=== PATIENT | female | born 1940 | race Caucasian/White ===

== ENCOUNTER 2016-11-10 15:08 | Inpatient (IN) ==
[~2016-11-10 15:08] MED LIST: ACETAMINOPHEN 325 MG TABLET PO PRN; DOCUSATE SODIUM 100 MG CAPSULE PO PRN; MAGNESIUM SULF RIDER 2 GM in PREMIX 1 EACH IV PRN; MAGNESIUM SULF RIDER 4 GM in PREMIX 1 EACH IV PRN; ONDANSETRON 4 MG/2 ML VIAL IV PRN; ZALEPLON 5 MG CAPSULE PO PRN
[2016-11-10] MEDS: DILTIAZEM INJ 100 MG in SODIUM CHLORIDE 0.9% 100 ML IV SCH (16:08)
--- NOTE | 2016-11-10 16:35 | XRay Report ---
XR chest 2V Indication: New onset atrial fibrillation Comparison: Chest x-ray dated May 24, 2010 Technique: Frontal and lateral views of the chest. Findings: The cardiomediastinal silhouette is stable in configuration. Chronic/granulomatous change without focal consolidation, pleural effusion, or pneumothorax. Visualized osseous and surrounding soft tissue structures appear grossly unchanged. IMPRESSION: Stable chest x-ray without acute cardiopulmonary process demonstrated. PROCEDURE INTERPRETED AT [facility] DEPARTMENT OF RADIOLOGY Final Report Signed by: Dr Mihai Sylvester
[2016-11-10 16:43] LABS: Basophils # 0.1 10*3/uL (0.0-0.2); Basophils % 0.6 % (0.0-0.8); Eosinophils # 0.3 10*3/uL (0.0-0.87); Eosinophils % 3.4 % (0.00-10.9); Hematocrit 35.4 VOL% (35.7-47.0); Hemoglobin 12.5 GM/DL (12.0-16.0); Immature Granulocytes % 0.2 %; Immature Granulocytes Absolute 0.02 #; Lymphocytes # 3.4 10*3/uL (1.4-4.0); Lymphocytes % 34.8 % (21.3-54.2); Mean Corpuscular HGB Conc 35.3 GM/DL (32-36); Mean Corpuscular Hemoglobin 31 PG (27-34); Mean Corpuscular Volume 86.8 FL (87-102); Mean Platelet Volume 11.6 FL (9.6-12.0); Monocytes # 0.8 10*3/uL (0.11-0.8); Monocytes % 8.4 % (1.7-12.7); Neutrophils # 5.1 10*3/uL (1.4-7.4); Neutrophils % 52.6 % (38.7-73.9); Platelet Count 282 T/CUMM (130-400); Red Blood Count 4.08 MC/CUMM (3.8-5.5); Red Cell Distribution Width 13.9 % (9.3-17.3); White Blood Count 9.8 T/CUMM (4-12)
[2016-11-10 17:12] LABS: Calcium 9.7 MG/DL (8.5-10.1); Magnesium 1.9 MG/DL (1.8-2.4); Osmolality,Calculated 281.7 MOS/KG (273-304); Potassium 4.4 MMOL/L (3.5-5.1); Risk Ratio 3.29; Thyroid Stimulating Hormone 0.006 uIU/ml (0.358-3.74); VLDL CHOLESTEROL 22.8 MG/DL
[2016-11-10] MEDS: ENOXAPARIN 60 MG/0.6 ML SYRINGE SUBCUT SCH (17:55)
[2016-11-10] MEDS: ATORVASTATIN 40 MG TABLET PO SCH (20:40)
[2016-11-10] MEDS: LATANOPROST 0.005% OPH SOLN 2.5 ML BOTTLE BOTH EYES SCH (20:40)
[2016-11-11] MEDS: DILTIAZEM INJ 100 MG in SODIUM CHLORIDE 0.9% 100 ML IV SCH ×2 (05:12→22:13)
[2016-11-11] MEDS: ENOXAPARIN 60 MG/0.6 ML SYRINGE SUBCUT SCH ×2 (05:17→17:54)
[2016-11-11 06:09] LABS: Basophils % 0.6 % (0.0-0.8); Eosinophils # 0.3 10*3/uL (0.0-0.87); Eosinophils % 4.5 % (0.00-10.9); Hematocrit 35.2 VOL% (35.7-47.0); Hemoglobin 12.1 GM/DL (12.0-16.0); Immature Granulocytes % 0.3 %; Immature Granulocytes Absolute 0.02 #; Lymphocytes # 2.7 10*3/uL (1.4-4.0); Lymphocytes % 40.8 % (21.3-54.2); Mean Corpuscular HGB Conc 34.4 GM/DL (32-36); Mean Corpuscular Hemoglobin 30 PG (27-34); Mean Corpuscular Volume 85.9 FL (87-102); Mean Platelet Volume 11.6 FL (9.6-12.0); Monocytes # 0.5 10*3/uL (0.11-0.8); Neutrophils # 3.1 10*3/uL (1.4-7.4); Neutrophils % 45.8 % (38.7-73.9); Platelet Count 247 T/CUMM (130-400); Red Cell Distribution Width 13.8 % (9.3-17.3); White Blood Count 6.7 T/CUMM (4-12)
[2016-11-11 06:44] LABS: Calcium 9.4 MG/DL (8.5-10.1); Osmolality,Calculated 285.1 MOS/KG (273-304); Potassium 3.5 MMOL/L (3.5-5.1)
--- NOTE | 2016-11-11 07:28 | Order Completion Report ---
See report scanned to EMR
[2016-11-11] MEDS: ASPIRIN EC 81 MG TABLET PO SCH (08:42)
[2016-11-11] MEDS: DILTIAZEM CD 240 MG CAPSULE PO SCH (08:42)
[2016-11-11] MEDS: VITAMIN E 400 UNIT CAPSULE PO SCH (08:42)
[2016-11-11] MEDS: METOPROLOL SUCCINATE XL 100 MG TABLET PO SCH (08:42)
[2016-11-11] MEDS: PANTOPRAZOLE 40 MG TABLET PO SCH (08:42)
[2016-11-11] MEDS: CHOLECALCIFEROL 1,000 UNIT TABLET PO SCH (08:42)
[2016-11-11] MEDS: ZINC GLUCONATE 50 MG TABLET PO SCH (08:42)
[2016-11-11] MEDS: LATANOPROST 0.005% OPH SOLN 2.5 ML BOTTLE BOTH EYES SCH ×2 (14:00→21:20)
--- NOTE | 2016-11-11 17:04 | Order Completion Report ---
See report scanned to EMR
--- NOTE | 2016-11-11 19:25 | Cardiology Progress Note ---
Eduardo Delacruz Lesley, JUSTYN, am scribing for, and in the presence of, Abimael Guillen MD 19:25. Assessment and Plan - Time spent with patient Time spent with patient: Greater than 30 minutes (Record review, assessment, documentation) (1) Atrial fibrillation Status: Acute Assessment and plan: SEE PLAN LISTED BELOW Current Visit: Yes (2) Dyslipidemia Status: Chronic Assessment and plan: SEE PLAN LISTED BELOW Current Visit: Yes (3) Hypertension Status: Chronic Assessment and plan: SEE PLAN LISTED BELOW Current Visit: Yes (4) Anticoagulation adequate Status: Acute Assessment and plan: SEE PLAN LISTED BELOW Current Visit: Yes Cardiology - PN: Subj Interval history: CONSERVATION TECHNICIAN: Dr. Mast PCP: Dr. Encarnacion SUMMARY: Ms. Rios is a 76-year-old WF, who is a direct admit from [facility] by Dr. Mast to be evaluated and treated for atrial fibrillation with RVR. Upon admission her heart rate was found to be in the 130s, EKG revealed atrial fibrillation. The patient was seen by Dr. Simpson in the past, and placed on Cardizem CD 240 mg daily and metoprolol succinate 100 mg daily. She has been on these medications for some time, and denies any history of atrial fibrillation. The patient was started on therapeutic Lovenox dosing as well as a diltiazem infusion for rate control. She is high risk for stroke as her chads vasc score exceeds 2. Past medical history includes hypertension and dyslipidemia. Past surgical history includes hysterectomy, TMJ surgery, hemorrhoidectomy. Patient has a family history of CAD, her mother with an OH at the age of 85, she has 1 brother that had several MIs, and his son is an OH. She denies a history of smoking, alcohol use, illicit drug use, and describes her caffeine intake is light. The patient states she has experience general malaise for approximately 2 months. She describes "weak spells" that she has had for 2-3 weeks. She states that during the spells she becomes dizzy, diaphoretic, and does experience heart palpitations. She denies shortness of breath, chest pain or discomfort, lower extremity edema, cough, orthopnea, or PND. Today she is ambulating on telemetry floor. She is on a Cardizem infusion at 20 mg an hour, with a heart rate in the 60-70 range. Her blood pressure has remained stable. Labs reviewed and are unremarkable. TSH is low, I will add free T4 at this level. Echocardiogram is pending. IMPRESSION AND PLAN: PRE-SYNCOPAL EPISODES -on telemetry, she had persistent atrial fibrillation, with occasional bradycardia events, on Cardizem drip. We discussed risks and benefits of management options. She had quite severe symptoms from the arrhythmia. We will proceed with a ANDREW guided cardioversion in a.m. Keep n.p.o. after midnight. venox, Cardizem infusion, persistent despite high dose AV caroline blockade daily. DYSLIPIDEMIA - well controlled, continue Lipitor. HYPERTENSION - controlled, will continue to monitor and adjust meds accordingly. ANTICOAGULANT - continue Lovenox, will transition to oral anticoagulant due to stroke risk, Chads Vasc score 3. Exam (Progress Note) - Constitutional Vitals: Period Temp Pulse Resp BP Sys/Traore Pulse Ox Last 24 Hr 97.1 F-98.5 F 68-139 16-20 111-131/56-77 95-99 Exam: General: Appears well with no apparent distress. Pleasant and cooperative. Appears comfortable. HEENT: PERRL, normocephalic, atraumatic. Mucous membranes moist. No jaundice noted. Conjunctiva moist and clear, sclerae anicteric. Neck: No JVD, no thyromegaly or lymphadenopathy noted. No carotid bruit appreciated. Cardiac: Irregularly irregular rate and rhythm. No murmur rub or gallop. PMI is nondisplaced. Lungs: Clear to auscultation without accessory muscle use to assist the respiratory pattern. No oxygen in use. Abdomen: Soft, bowel sounds normoactive. Nontender and nondistended. No abdominal bruit or thrill noted. No masses noted. Musculoskeletal: No fluid collection. Full range of motion is noted. Extremities: No clubbing, cyanosis noted. No edema noted. Upper extremity pulses 2+. Lower extremity pulses 2+. Capillary refill less than 3 seconds. Skin: Warm and dry. No unusual lesions or rashes. No skin breakdown appreciated. Neuro: Awake, alert and oriented 3. Moves all extremities well without hemiparesis or paralysis. No essential tremor is appreciated. Result/EKG - Labs CBC & BMP: 11/11/16 05:19 11/11/16 05:19 Lab Results: I have reviewed the past 24 hour labs Labs: Laboratory Results - last 24 hr 11/10/16 11/10/16 11/11/16 16:10 16:10 05:19 WBC 9.8 6.7 D RBC 4.08 4.10 Hgb 12.5 12.1 Hct 35.4 L 35.2 L MCV 86.8 L 85.9 L MCH 31 30 MCHC 35.3 34.4 RDW 13.9 13.8 Plt Count 282 247 MPV 11.6 11.6 Neut % (Auto) 52.6 45.8 Lymph % (Auto) 34.8 40.8 [place] % (Auto) 8.4 8.0 Eos % (Auto) 3.4 4.5 Baso % (Auto) 0.6 0.6 Neut # (Auto) 5.1 3.1 Lymph # (Auto) 3.4 2.7 [place] # (Auto) 0.8 0.5 Eos # (Auto) 0.3 0.3 Baso # (Auto) 0.1 0.0 Immature Gran % 0.2 0.3 Nucleated RBC % 0.0 0.0 Immature Gran # 0.02 0.02 Nucleated RBCs # 0.00 0.00 Immature Plt Fraction 0.0 0.0 Sodium 138 Potassium 4.4 Chloride 102 Carbon Dioxide 28 Anion Gap 12.4 BUN 32 H Creatinine 1.00 GFR Calculation 54 BUN/Creatinine Ratio 32.00 H Glucose 99 Calculated Osmolality 281.7 Calcium 9.7 Magnesium 1.9 Triglycerides 114 Cholesterol 138 LDL Cholesterol 79.0 VLDL Cholesterol 22.8 HDL Cholesterol 42 Heart Disease Risk Ratio 3.29 TSH 3rd Generation 0.006 L 11/11/16 05:19 WBC RBC Hgb Hct MCV MCH MCHC RDW Plt Count MPV Neut % (Auto) Lymph % (Auto) [place] % (Auto) Eos % (Auto) Baso % (Auto) Neut # (Auto) Lymph # (Auto) [place] # (Auto) Eos # (Auto) Baso # (Auto) Immature Gran % Nucleated RBC % Immature Gran # Nucleated RBCs # Immature Plt Fraction Sodium 142 Potassium 3.5 Chloride 104 Carbon Dioxide 31 Anion Gap 10.5 BUN 22 H D Creatinine 0.80 GFR Calculation 70 BUN/Creatinine Ratio 27.00 H Glucose 91 Calculated Osmolality 285.1 Calcium 9.4 Magnesium 2.0 Triglycerides Cholesterol LDL Cholesterol VLDL Cholesterol HDL Cholesterol Heart Disease Risk Ratio TSH 3rd Generation - Diagnostic Findings Procedure: Chest x-ray: report reviewed by me - EKG EKG shows: atrial fibrillation Quality Measures - VTE Contraindication to Pharmacological VTE Prophylaxis: Already on Theraputic Agent , No Prophylaxis Needed Wilmer Delacruz Attila, MD, personally performed the services described in this documentation, ascribed by Sandra Clark NP in my presence, and it is both accurate and complete .
--- NOTE | 2016-11-11 20:10 | Order Completion Report ---
See report scanned to EMR
[2016-11-11] MEDS: ATORVASTATIN 40 MG TABLET PO SCH (21:20)
[2016-11-12 03:13] LABS: Apearance,Urine CLEAR (Clear); Bilirubin,Urine Negative (Negative); Blood, Urine Negative (Negative); Glucose,Urine (UA) Negative (Negative); Ketones,Urine Negative (Negative); Nitrite,Urine Negative (Negative); Protein,Urine Negative; RBC,Urine <1 /HPF (0-4); Urine Color Straw (Yellow); Urine Specific Gravity 1.004 (1.001-1.035); Urine Urobilinogen < 2.0 EU/DL (0.2-1.0); WBC,Urine <1 /HPF (0-6)
[2016-11-12 04:23] LABS: Basophils % 0.5 % (0.0-0.8); Eosinophils # 0.3 10*3/uL (0.0-0.87); Eosinophils % 3.9 % (0.00-10.9); Hemoglobin 12.3 GM/DL (12.0-16.0); Immature Granulocytes % 0.3 %; Immature Granulocytes Absolute 0.02 #; Lymphocytes # 3.1 10*3/uL (1.4-4.0); Lymphocytes % 40.2 % (21.3-54.2); Mean Corpuscular HGB Conc 34.2 GM/DL (32-36); Mean Corpuscular Hemoglobin 30 PG (27-34); Mean Corpuscular Volume 86.5 FL (87-102); Mean Platelet Volume 11.6 FL (9.6-12.0); Monocytes # 0.8 10*3/uL (0.11-0.8); Monocytes % 10.1 % (1.7-12.7); Neutrophils # 3.5 10*3/uL (1.4-7.4); Platelet Count 233 T/CUMM (130-400); Red Blood Count 4.16 MC/CUMM (3.8-5.5); Red Cell Distribution Width 13.7 % (9.3-17.3); White Blood Count 7.7 T/CUMM (4-12)
[2016-11-12 04:26] LABS: INR 1.1; PT Patient Result 11.5 SECS
[2016-11-12] MEDS: ENOXAPARIN 60 MG/0.6 ML SYRINGE SUBCUT SCH (04:30)
[2016-11-12 04:50] LABS: Calcium 9.2 MG/DL (8.5-10.1); Magnesium 1.9 MG/DL (1.8-2.4); Osmolality,Calculated 288.8 MOS/KG (273-304); Potassium 4.1 MMOL/L (3.5-5.1)
--- NOTE | 2016-11-12 08:02 | Order Completion Report ---
See report scanned to EMR
[2016-11-12] MEDS ORDERED: PROPOFOL 200 MG/20 ML VIAL IV ONE (09:14)
--- NOTE | 2016-11-12 09:29 | History and Physical Update ---
Sedation H&P Update - History and Physical H&P was reviewed, the patient examined and there: are no changes in the patients condition since last H&P was completed. - Dictation Physical: refer to H&P completed by admitting physician - Physical Exam Mental Status: alert and oriented Heart: other (irregular, tachy) Lung: clear to auscultation Abdomen: within normal limits Vitals: within normal limits - Sedation Plan for Sedation: MAC (by the anesthesia team) Patient Consent: Procedure disscussed with patient and patinet has consented., Risks and benefits were discussed with patient,including infection,, bleeding, injury to surrounding structures, seizure, temporary nerve, Patient understands and accepts potential risks/benefits and agrees to ASA Class: III Airway Assessment: Class II: Soft palate, uvula, fauces visible
--- NOTE | 2016-11-12 09:53 | Event Note ---
PROCEDURAL SUMMARY ANDREW guided cardioversion. Successful procedure, no complications. Timeout was performed before the procedure. Sedation was provided by the anesthesia team. A ANDREW was performed to rule out intracardiac thrombi. See report separately. Briefly, no intracardiac thrombi were found. Synchronized DC cardioversion was performed with a 200 J biphasic shock. Sinus rhythm, with frequent PACs resumed. The patient woke up uneventfully from sedation. There were no complications. Plan: -d/c cardizem drip -continue metoprolol -resume diet
[2016-11-12] MEDS ORDERED: APIXABAN 5 MG TABLET PO SCH (10:00)
[2016-11-12] MEDS ORDERED: FLECAINIDE 50 MG TABLET PO SCH (10:00)
[2016-11-12 10:16] LABS: Albumin 3.3 G/DL (3.4-5.0); Bilirubin,Direct 0.21 MG/DL (0.0-0.20); Bilirubin,Indirect 0.6 MG/DL (0.0-1.0); Bilirubin,Total 0.8 MG/DL (0.2-1.0)
--- NOTE | 2016-11-12 10:17 | Order Completion Report ---
See report scanned to EMR
--- NOTE | 2016-11-12 10:20 | Cardiology Progress Note ---
Assessment and Plan (1) Atrial fibrillation Status: Acute Assessment and plan: 76-year-old female, followed by Dr. Cooper. Admitted for symptomatic atrial fibrillation/RVR, presyncope. Was diagnosed with hyperthyroidism. -Increase metoprolol to 100 mg twice daily, DC Cardizem. Start flecainide 50 mg twice daily -Check free T3, thyroid ultrasound. Based on the findings, she will likely be a candidate for methimazole treatment due to symptomatic hypothyroidism, and will need endocrine follow-up -Check LFTs -DYSLIPIDEMIA - well controlled, continue Lipitor. -HYPERTENSION - controlled, will continue to monitor and adjust meds accordingly. -ANTICOAGULANT -stop Lovenox, start Eliquis 5 mg twice daily. -If remains stable and no high risk findings on thyroid workup, may be able to go home later today. Will need follow-up with Dr. Mast in 2 weeks, with EKG and BMP/magnesium check. She will also need endocrine follow-up. I suggest an event recorder, as she had recurrent presyncope, but so far, no evidence of prominent tachycardia or bradycardia arrhythmia Current Visit: Yes (2) Dyslipidemia Status: Chronic Assessment and plan: SEE PLAN LISTED BELOW Current Visit: Yes (3) Hypertension Status: Chronic Assessment and plan: SEE PLAN LISTED BELOW Current Visit: Yes (4) Anticoagulation adequate Status: Acute Assessment and plan: SEE PLAN LISTED BELOW Current Visit: Yes Cardiology - PN: Subj Interval history: Uneventful ANDREW cardioversion, she is now back into sinus rhythm, with frequent PACs. No chest pain shortness of breath. Exam (Progress Note) - Constitutional Vitals: Period Temp Pulse Resp BP Sys/Traore Pulse Ox Last 24 Hr 96.9 F-98.6 F 51-116 16-18 101-132/55-70 94-98 General appearance: normal weight, no acute distress - Head Head exam: Present: normal inspection - Eye Eye exam: Absent: periorbital swelling, laceration to eyelids Pupils: Absent: dilated - ENT ENT exam: Present: normal external ear exam - Neck Neck exam: Present: normal inspection - Respiratory Respiratory exam: Present: clear to auscultation bilaterally. Absent: chest wall tenderness - Cardiovascular Cardiovascular exam: Present: irregular rhythm. Absent: JVD, systolic murmur - GI/Abdominal GI/Abdominal exam: Present: normal bowel sounds. Absent: distended - Extremities Exam Extremities exam: Present: normal inspection, normal capillary refill. Absent: edema - Back Exam Back exam: Present: normal inspection - Neurological Exam Neurological exam: Present: alert, oriented X3 - Psychiatric Psychiatric exam: Present: normal affect, normal mood - Skin Skin exam: Present: normal color, warm. Absent: cyanosis Result/EKG - Labs CBC & BMP: 11/12/16 03:31 11/12/16 03:31 Lab Results: I have reviewed the past 24 hour labs Labs: Laboratory Results - last 24 hr 11/11/16 11/12/16 11/12/16 05:19 02:58 03:31 WBC 7.7 RBC 4.16 Hgb 12.3 Hct 36.0 MCV 86.5 L MCH 30 MCHC 34.2 RDW 13.7 Plt Count 233 MPV 11.6 Neut % (Auto) 45.0 Lymph % (Auto) 40.2 [place] % (Auto) 10.1 Eos % (Auto) 3.9 Baso % (Auto) 0.5 Neut # (Auto) 3.5 Lymph # (Auto) 3.1 [place] # (Auto) 0.8 Eos # (Auto) 0.3 Baso # (Auto) 0.0 Immature Gran % 0.3 Nucleated RBC % 0.0 Immature Gran # 0.02 Nucleated RBCs # 0.00 Immature Plt Fraction 0.0 INR PT Patient/Control Mix Sodium Potassium Chloride Carbon Dioxide Anion Gap BUN Creatinine GFR Calculation BUN/Creatinine Ratio Glucose Calculated Osmolality Calcium Magnesium Free T4 2.25 H Urine Color Straw Urine Appearance Clear Urine pH 7.0 Ur Specific [place] 1.004 Urine Protein Negative Urine Glucose (UA) Negative Urine Ketones Negative Urine Blood Negative Urine Nitrate Negative Urine Bilirubin Negative Urine Urobilinogen < 2.0 H Urine Leukocytes Negative Urine RBC <1 Urine WBC <1 Ur Culture Indicated? Not indicated 11/12/16 11/12/16 03:31 03:31 WBC RBC Hgb Hct MCV MCH MCHC RDW Plt Count MPV Neut % (Auto) Lymph % (Auto) [place] % (Auto) Eos % (Auto) Baso % (Auto) Neut # (Auto) Lymph # (Auto) [place] # (Auto) Eos # (Auto) Baso # (Auto) Immature Gran % Nucleated RBC % Immature Gran # Nucleated RBCs # Immature Plt Fraction INR 1.1 PT Patient/Control Mix 11.5 Sodium 144 Potassium 4.1 Chloride 107 Carbon Dioxide 30 Anion Gap 11.1 BUN 21 H Creatinine 0.80 GFR Calculation 70 BUN/Creatinine Ratio 26.00 H Glucose 93 Calculated Osmolality 288.8 Calcium 9.2 Magnesium 1.9 Free T4 Urine Color Urine Appearance Urine pH Ur Specific [place] Urine Protein Urine Glucose (UA) Urine Ketones Urine Blood Urine Nitrate Urine Bilirubin Urine Urobilinogen Urine Leukocytes Urine RBC Urine WBC Ur Culture Indicated? - EKG EKG results: interpreted by me Quality Measures - VTE Contraindication to Pharmacological VTE Prophylaxis: Already on Theraputic Agent , No Prophylaxis Needed
[2016-11-12] MEDS: CHOLECALCIFEROL 1,000 UNIT TABLET PO SCH (11:59)
[2016-11-12] MEDS: PANTOPRAZOLE 40 MG TABLET PO SCH (12:00)
[2016-11-12] MEDS: ASPIRIN EC 81 MG TABLET PO SCH (12:00)
[2016-11-12] MEDS: ZINC GLUCONATE 50 MG TABLET PO SCH (12:00)
[2016-11-12] MEDS ORDERED: METOPROLOL SUCCINATE XL 100 MG TABLET PO SCH (12:00)
[2016-11-12] MEDS: METOPROLOL SUCCINATE XL 100 MG TABLET PO SCH (12:01)
[2016-11-12] MEDS: DILTIAZEM CD 240 MG CAPSULE PO SCH (12:04)
[2016-11-12] MEDS: VITAMIN E 400 UNIT CAPSULE PO SCH (12:05)
--- NOTE | 2016-11-12 16:39 | Order Completion Report ---
See report scanned to EMR
[2016-11-12 16:41] VITALS: BP 131/62
--- NOTE | 2016-11-12 17:16 | Discharge Summary ---
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 Mast PCP: Dr. Encarnacion SUMMARY: Ms. Rios is a 76-year-old WF, who is a direct admit from [facility] by Dr. Mast to be evaluated and treated for atrial fibrillation with RVR, presyncope. Upon admission her heart rate was found to be in the 130s, EKG revealed atrial fibrillation. The patient was seen by Dr. Simpson in the past, and placed on Cardizem CD 240 mg daily and metoprolol succinate 100 mg daily. She has been on these medications for some time, and denies any history of atrial fibrillation. The patient was started on therapeutic Lovenox dosing as well as a diltiazem infusion for rate control. She is high risk for stroke as her chads vasc score exceeds 2. She has been diagnosed with hyperthyroidism. She underwent ANDREW and Cardioversion on 11/12/16 and was restored to sinus rhythm with frequent PACs. Her metoprolol was increased to 100mg BID and Cardizem discontinued. She was also started on Flecainide 50mg po BID. Thyroid ultrasound was obtained and revealed 0.9 cm left thyroid lobe nodule. We will start her on Methimazole 5mg po daily. She and her family have the name of an roller machine operator in [place] that she wishes to follow up with. Since the patient is being discharged after 6PM, we will have the equal opportunity assistant call her in the morning with follow up appointments for endocrinology, Dr. Mast, and Dr. Encarnacion. She has remained stable and is eligible for discharge. She will need to follow up with Dr. Mast in 2 weeks with EKG and BMP w/ Mg. She will also need to follow up with her PCP Dr. Encarnacion in 1-2 weeks with repeat LFTs and will need follow up with endocrinology. She will need an event recorder at discharge, as she had recurrent presyncope, but so far, no evidence of prominent tachycardia or bradycardia arrhythmia. Nursing staff will call in Methimazole 5mg po daily #30, 1 refill to patient's pharmacy of choice. - Time spent with patient Time with patient DS: Greater than 30 minutes Diagnosis - Discharge Diagnosis (1) Atrial fibrillation Status: Resolved (2) Dyslipidemia Status: Chronic (3) Hypertension Status: Chronic (4) Anticoagulation adequate Status: Acute Specialty Discharge - Follow Up or Referrals Follow up with: Saadia Mast DO [Physician] - 2 Weeks (With BMP w/ Mg. ) Crystal Encarnacion MD [Primary Care Provider] - 2 Weeks (Follow up in 2-3 weeks with LFTs. ) - Speciality Discharge Instructions Endocrinology Instructions: Please schedule patient an appointment with endocrinology upon discharge. Discharge Plan - Discharge Data Disposition: Disch To Home/Self Care Condition at Discharge: Stable Discharge Diet: heart healthy Activity: resume usual activities as tolerated Hygiene: no restrictions Weight Bearing at Discharge: full weight bearing Contact your physician if you experience:: fever over 101, Difficulty voiding, Nausea/Vomiting, Shortness of breath, pain uncontrolled by pain medications - Discharge Medications New Flecainide [Tambocor] 50 mg PO BID #60 tablet methIMAzole [Methimazole] 5 mg PO DAILY #30 tablet Apixaban [Eliquis] 5 mg PO BID #60 tablet Metoprolol Succinate Xl [Toprol Xl] 100 mg PO BID #60 tablet Continue Latanoprost [Latanoprost 0.005 % Oph Soln] 1 drop BOTH EYES BEDTIME Vitamin E 400 unit PO DAILY Cholecalciferol (Vitamin D3) [Vitamin D3] 1,000 unit PO DAILY Atorvastatin Calcium 40 mg PO DAILY Aspirin [Ecotrin] 81 mg PO DAILY Zinc 50 mg PO DAILY Indapamide 2.5 mg PO DAILY Discontinued Benazepril [Lotensin] 10 mg PO DAILY dilTIAZem HCl [Diltiazem ER (24 hr)] 120 mg PO DAILY Metoprolol Succinate 100 mg PO DAILY No Action Potassium Chloride 10 meq PO DAILY - Follow Up or Referral Follow Up: Crystal Encarnacion MD [Primary Care Provider] - 2 Weeks (Follow up in 2-3 weeks with LFTs. ) Saadia Mast DO [Physician] - 2 Weeks (With BMP w/ Mg. ) - Forms/Instructions Additional Discharge Instructions: Nursing staff please call in Methimazole 5mg po daily #30, 1 refill to patient's pharmacy of choice. Exam - Constitutional Vitals: Period Temp Pulse Resp BP Sys/Traore Pulse Ox Last 24 Hr 96.0 F-98.2 F 55-116 16-18 101-132/59-70 94-99 Exam: General appearance: normal weight, no acute distress - Head Head exam: Present: normal inspection - Eye Eye exam: Absent: periorbital swelling, laceration to eyelids Pupils: Absent: dilated - ENT ENT exam: Present: normal external ear exam - Neck Neck exam: Present: normal inspection - Respiratory Respiratory exam: Present: clear to auscultation bilaterally. Absent: chest wall tenderness - Cardiovascular Cardiovascular exam: Present: irregular rhythm. Absent: JVD, systolic murmur - GI/Abdominal GI/Abdominal exam: Present: normal bowel sounds. Absent: distended - Extremities Exam Extremities exam: Present: normal inspection, normal capillary refill. Absent: edema - Back Exam Back exam: Present: normal inspection - Neurological Exam Neurological exam: Present: alert, oriented X3 - Psychiatric Psychiatric exam: Present: normal affect, normal mood - Skin Skin exam: Present: normal color, warm. Absent: cyanosis Discharge Results Procedures and tests throughout hospitalization: Pending Orders 11/12/16 03:28 Free T3 (Triiodothyronine), S Routine 11/12/16 08:18 CL heart Routine 11/12/16 09:43 US thyroid Routine Labs on day of discharge: Labs from last 24 hours 11/12/16 11/12/16 11/12/16 03:31 03:31 03:31 WBC 7.7 RBC 4.16 Hgb 12.3 Hct 36.0 MCV 86.5 L MCH 30 MCHC 34.2 RDW 13.7 Plt Count 233 MPV 11.6 Neut % (Auto) 45.0 Lymph % (Auto) 40.2 [place] % (Auto) 10.1 Eos % (Auto) 3.9 Baso % (Auto) 0.5 Neut # (Auto) 3.5 Lymph # (Auto) 3.1 [place] # (Auto) 0.8 Eos # (Auto) 0.3 Baso # (Auto) 0.0 Immature Gran % 0.3 Nucleated RBC % 0.0 Immature Gran # 0.02 Nucleated RBCs # 0.00 Immature Plt Fraction 0.0 INR 1.1 PT Patient/Control Mix 11.5 Sodium 144 Potassium 4.1 Chloride 107 Carbon Dioxide 30 Anion Gap 11.1 BUN 21 H Creatinine 0.80 GFR Calculation 70 BUN/Creatinine Ratio 26.00 H Glucose 93 Calculated Osmolality 288.8 Calcium 9.2 Magnesium 1.9 Total Bilirubin Direct Bilirubin Indirect Bilirubin AST ALT Alkaline Phosphatase Total Protein Albumin Urine Color Urine Appearance Urine pH Ur Specific Trail Urine Protein Urine Glucose (UA) Urine Ketones Urine Blood Urine Nitrate Urine Bilirubin Urine Urobilinogen Urine Leukocytes Urine RBC Urine WBC Ur Culture Indicated? 11/12/16 11/12/16 03:28 02:58 WBC RBC Hgb Hct MCV MCH MCHC RDW Plt Count MPV Neut % (Auto) Lymph % (Auto) [place] % (Auto) Eos % (Auto) Baso % (Auto) Neut # (Auto) Lymph # (Auto) [place] # (Auto) Eos # (Auto) Baso # (Auto) Immature Gran % Nucleated RBC % Immature Gran # Nucleated RBCs # Immature Plt Fraction INR PT Patient/Control Mix Sodium Potassium Chloride Carbon Dioxide Anion Gap BUN Creatinine GFR Calculation BUN/Creatinine Ratio Glucose Calculated Osmolality Calcium Magnesium Total Bilirubin 0.80 Direct Bilirubin 0.210 H Indirect Bilirubin 0.6 AST 19 ALT 21 Alkaline Phosphatase 111 Total Protein 6.0 L Albumin 3.3 L Urine Color Straw Urine Appearance Clear Urine pH 7.[address] 1.004 Urine Protein Negative Urine Glucose (UA) Negative Urine Ketones Negative Urine Blood Negative Urine Nitrate Negative Urine Bilirubin Negative Urine Urobilinogen < 2.0 H Urine Leukocytes Negative Urine RBC <1 Urine WBC <1 Ur Culture Indicated? Not indicated DS: Provider Date of admission: 11/11/16 08:51 Primary care physician: Crystal Encarnacion MD Attending physician on admission: Saadia Mast DO Discharging clinician: KASHIF Conteh Expected date of discharge: 11/12/16
[2016-11-12] MEDS ORDERED: HYDROCORTISONE 1% CREAM 28 GM TUBE TOP PRN (17:46)
--- NOTE | 2016-11-12 17:53 | Ultrasound Report ---
Thyroid ultrasound November 12, 2016 at 11:00 AM Indication: Hyperthyroidism Comparison: No relevant comparisons Technique: Carmona scale sonogram of the thyroid gland was performed in routine fashion utilizing color Doppler with image capture. Findings: The isthmus measures 0.2 cm in anterior to posterior dimension. Right thyroid lobe measures 4.4 x 2.1 x 0.9 cm and the left lobe measures 4.5 x 1.4 x 1.7 cm. 1.9 x 0.8 x 1.1 cm solid nodule within the mid to inferior left thyroid lobe. Remainder of the echotexture is homogeneous. Impression: 1. 0.9 cm left thyroid lobe nodule. If clinically concerned for autonomous nodule, thyroid uptake scan could be performed. PROCEDURE INTERPRETED AT [facility] DEPARTMENT OF RADIOLOGY Final Report Signed by: Mirian Carmona MD
== END 2016-11-12 19:25 | disposition home or self-care (01) | DRG 310 ==
LOC: N.TELEN 15:08 → EDSTATUS 11-11 15:25 → N.CARD 11-11 15:27
PROVIDERS: ADMIT Internal Medicine Cardiovascular Disease; ATTEND Internal Medicine Cardiovascular Disease

== ENCOUNTER 2016-11-25 05:57 | Observation (INO) ==
[2016-11-25] MEDS ORDERED: ceFAZolin 1,000 MG VIAL IRRIG ONE (08:00)
[2016-11-25] MEDS ORDERED: ceFAZolin 1,000 MG VIAL ONE (08:23)
[2016-11-25] MEDS ORDERED: fentaNYL 100 MCG/2 ML VIAL ONE (08:23)
[2016-11-25] MEDS ORDERED: HEPARIN/NACL 0.9% 2 UNITS/ML 500 ML IV ONE (08:24)
[2016-11-25] MEDS ORDERED: MIDAZOLAM 2 MG/2 ML VIAL ONE (08:24)
[2016-11-25] MEDS ORDERED: LIDOCAINE 1% 20 ML VIAL ONE (08:24)
[2016-11-25 09:01] LABS: Magnesium 1.9 MG/DL (1.8-2.4); Osmolality,Calculated 277.8 MOS/KG (273-304); Potassium 3.6 MMOL/L (3.5-5.1)
[2016-11-25] MEDS ORDERED: TISSUE ADHESIVE 1 EACH APPLICATOR TOP ONE (09:07)
[2016-11-25] MEDS ORDERED: oxyCODONE/ACETAMINOPHEN 5-325 MG TABLET PO PRN (09:28)
[2016-11-25 09:41] LABS: Basophils # 0.1 10*3/uL (0.0-0.2); Basophils % 0.6 % (0.0-0.8); Eosinophils # 0.3 10*3/uL (0.0-0.87); Eosinophils % 3.8 % (0.00-10.9); Hematocrit 40.3 VOL% (35.7-47.0); Immature Granulocytes % 0.4 %; Immature Granulocytes Absolute 0.03 #; Lymphocytes # 2.3 10*3/uL (1.4-4.0); Mean Corpuscular HGB Conc 34.7 GM/DL (32-36); Mean Corpuscular Hemoglobin 30 PG (27-34); Mean Corpuscular Volume 87.2 FL (87-102); Mean Platelet Volume 11.7 FL (9.6-12.0); Monocytes # 0.6 10*3/uL (0.11-0.8); Monocytes % 7.6 % (1.7-12.7); Neutrophils # 4.7 10*3/uL (1.4-7.4); Neutrophils % 58.6 % (38.7-73.9); Platelet Count 243 T/CUMM (130-400); Red Blood Count 4.62 MC/CUMM (3.8-5.5); Red Cell Distribution Width 14.1 % (9.3-17.3); White Blood Count 7.9 T/CUMM (4-12)
[2016-11-25] MEDS ORDERED: POTASSIUM CHLORIDE 10 MEQ TABLET PO SCH (09:45)
[2016-11-25 10:22] LABS: INR 1.1; PT Patient Result 11.2 SECS
[2016-11-25] MEDS: CHOLECALCIFEROL 1,000 UNIT TABLET PO SCH (16:21)
[2016-11-25] MEDS: VITAMIN E 400 UNIT CAPSULE PO SCH (16:22)
[2016-11-25] MEDS: ASPIRIN EC 81 MG TABLET PO SCH (16:22)
[2016-11-25] MEDS: ZINC GLUCONATE 50 MG TABLET PO SCH (16:22)
[2016-11-25] MEDS: INDAPAMIDE 2.5 MG TABLET PO SCH (16:23)
[2016-11-25] MEDS: ATORVASTATIN 40 MG TABLET PO SCH (16:23)
[2016-11-25] MEDS: methIMAzole 5 MG TABLET PO SCH (16:23)
[2016-11-25] MEDS: FLECAINIDE 100 MG TABLET PO SCH ×2 (16:23→21:35)
[2016-11-25] MEDS: METOPROLOL SUCCINATE XL 100 MG TABLET PO SCH ×2 (16:24→21:35)
[2016-11-25] MEDS: LATANOPROST 0.005% OPH SOLN 2.5 ML BOTTLE BOTH EYES SCH (21:36)
[2016-11-26] MEDS: ONDANSETRON 4 MG/2 ML VIAL IV PRN ×2 (01:02→08:08)
[2016-11-26 06:27] LABS: Calcium 9.5 MG/DL (8.5-10.1); Magnesium 1.9 MG/DL (1.8-2.4); Osmolality,Calculated 283.4 MOS/KG (273-304); Potassium 3.9 MMOL/L (3.5-5.1)
[2016-11-26 08:44] LABS: Albumin 3.3 G/DL (3.4-5.0); Bilirubin,Direct 0.12 MG/DL (0.0-0.20); Bilirubin,Indirect 0.6 MG/DL (0.0-1.0); Bilirubin,Total 0.7 MG/DL (0.2-1.0); Total Protein 6.4 G/DL (6.4-8.3)
[2016-11-26] MEDS: methIMAzole 5 MG TABLET PO SCH (11:02)
[2016-11-26] MEDS: INDAPAMIDE 2.5 MG TABLET PO SCH (11:02)
[2016-11-26] MEDS: ATORVASTATIN 40 MG TABLET PO SCH (11:02)
[2016-11-26] MEDS: FLECAINIDE 100 MG TABLET PO SCH ×2 (11:02→20:30)
[2016-11-26] MEDS: ASPIRIN EC 81 MG TABLET PO SCH (11:02)
[2016-11-26] MEDS: CHOLECALCIFEROL 1,000 UNIT TABLET PO SCH (11:03)
[2016-11-26] MEDS: METOPROLOL SUCCINATE XL 100 MG TABLET PO SCH ×2 (11:03→20:30)
[2016-11-26] MEDS: VITAMIN E 400 UNIT CAPSULE PO SCH (11:03)
[2016-11-26] MEDS: ZINC GLUCONATE 50 MG TABLET PO SCH (11:03)
[2016-11-26] MEDS: SODIUM CHLORIDE 0.9% 1,000 ML IV SCH ×2 (12:06→23:51)
[2016-11-26] MEDS: COLCHICINE 0.6 MG TABLET PO SCH (12:06)
[2016-11-26] MEDS: LATANOPROST 0.005% OPH SOLN 2.5 ML BOTTLE BOTH EYES SCH (22:07)
[2016-11-27 05:27] LABS: Basophils # 0.1 10*3/uL (0.0-0.2); Basophils % 0.6 % (0.0-0.8); Eosinophils # 0.3 10*3/uL (0.0-0.87); Eosinophils % 3.7 % (0.00-10.9); Hematocrit 38.7 VOL% (35.7-47.0); Hemoglobin 13.1 GM/DL (12.0-16.0); Immature Granulocytes % 0.2 %; Immature Granulocytes Absolute 0.02 #; Lymphocytes # 2.8 10*3/uL (1.4-4.0); Lymphocytes % 30.7 % (21.3-54.2); Mean Corpuscular HGB Conc 33.9 GM/DL (32-36); Mean Corpuscular Hemoglobin 29 PG (27-34); Mean Corpuscular Volume 86.6 FL (87-102); Mean Platelet Volume 10.6 FL (9.6-12.0); Monocytes # 0.8 10*3/uL (0.11-0.8); Monocytes % 8.5 % (1.7-12.7); Neutrophils # 5.2 10*3/uL (1.4-7.4); Neutrophils % 56.3 % (38.7-73.9); Platelet Count 195 T/CUMM (130-400); Red Blood Count 4.47 MC/CUMM (3.8-5.5); Red Cell Distribution Width 14.2 % (9.3-17.3); White Blood Count 9.2 T/CUMM (4-12)
[2016-11-27 05:58] LABS: Calcium 8.9 MG/DL (8.5-10.1); Osmolality,Calculated 282.3 MOS/KG (273-304); Potassium 4.2 MMOL/L (3.5-5.1)
[2016-11-27] MEDS: ATORVASTATIN 40 MG TABLET PO SCH (09:45)
[2016-11-27] MEDS: COLCHICINE 0.6 MG TABLET PO SCH (09:45)
[2016-11-27] MEDS: FLECAINIDE 100 MG TABLET PO SCH (09:45)
[2016-11-27] MEDS: CHOLECALCIFEROL 1,000 UNIT TABLET PO SCH (09:46)
[2016-11-27] MEDS: ZINC GLUCONATE 50 MG TABLET PO SCH (09:46)
[2016-11-27] MEDS: VITAMIN E 400 UNIT CAPSULE PO SCH (09:46)
[2016-11-27] MEDS: METOPROLOL SUCCINATE XL 100 MG TABLET PO SCH (09:46)
[2016-11-27 12:32] VITALS: BP 131/78
== END 2016-11-27 13:49 | disposition home or self-care (01) ==
LOC: N.TELEN 05:57 → N.CL 05:57 → N.TELEN 13:03
PROVIDERS: ADMIT Internal Medicine Clinical Cardiac Electrophysiology; ATTEND Internal Medicine Clinical Cardiac Electrophysiology

== ENCOUNTER 2019-06-14 16:18 | Inpatient (IN) ==
[2019-06-14] MEDS ORDERED: GLUCAGON 1 MG VIAL IM PRN (18:08)
[2019-06-14] MEDS ORDERED: DEXTROSE 10% 250 ML BAG IV PRN (18:08)
[2019-06-14] MEDS ORDERED: SODIUM CHLORIDE 0.9% 500 ML IV STA (18:15)
[2019-06-14] MEDS ORDERED: ONDANSETRON 4 MG/2 ML VIAL IV STA ×2 (18:15→18:19)
[2019-06-14] MEDS ORDERED: HYDROmorphone 2 MG/1 ML VIAL IV ONE (18:19)
[2019-06-14] MEDS ORDERED: ACETAMINOPHEN 325 MG TABLET PO PRN (18:27)
[2019-06-14] MEDS ORDERED: ONDANSETRON 4 MG/2 ML VIAL IV PRN (18:27)
[2019-06-14] MEDS ORDERED: HYDROmorphone 2 MG/1 ML VIAL IV PRN (18:33)
[2019-06-14 18:47] LABS: Basophils # 0.1 10*3/uL (0.0-0.2); Basophils % 0.4 % (0.0-0.8); Eosinophils # 0.2 10*3/uL (0.0-0.87); Eosinophils % 1.3 % (0.00-10.9); Hematocrit 43.4 VOL% (35.7-47.0); Hemoglobin 14.7 GM/DL (12.0-16.0); Immature Granulocytes % 0.7 %; Lymphocytes # 1.8 10*3/uL (1.4-4.0); Lymphocytes % 12.2 % (21.3-54.2); Mean Corpuscular HGB Conc 33.9 GM/DL (32-36); Mean Platelet Volume 10.6 FL (9.6-12.0); Monocytes % 6.3 % (1.7-12.7); Neutrophils % 79.1 % (38.7-73.9); Platelet Count 216 T/CUMM (130-400); Red Blood Count 4.77 MC/CUMM (3.8-5.5); White Blood Count 14.8 T/CUMM (4-12)
[2019-06-14 19:04] LABS: INR 1.1; PT Patient Result 11.8 SECS (9.8-11.9)
[2019-06-14 19:10] LABS: Albumin 3.7 G/DL (3.4-5.0); Bilirubin,Total 0.7 MG/DL (0.2-1.0); Calcium 9.4 MG/DL (8.5-10.1); Total Protein 7.5 G/DL (6.4-8.3)
[2019-06-14 20:07] LABS: Apearance,Urine CLEAR (Clear); Bilirubin,Urine Negative (Negative); Blood, Urine Small mg/dL (Negative); Glucose,Urine (UA) Negative (Negative); Ketones,Urine Negative (Negative); Mucus,Urine Occasional /LPF (Occasional); Nitrite,Urine Negative (Negative); Protein,Urine Negative; RBC,Urine 5 /HPF (0-4); Squamous Epithelial Cell,Urine Occasional /HPF (0-10); Urine Color Colorless (Yellow); Urine Specific Gravity 1.008 (1.001-1.035); Urine Urobilinogen < 2.0 EU/DL (0.2-1.0); WBC,Urine <1 /HPF (0-6)
[2019-06-14] MEDS ORDERED: POTASSIUM CHLORIDE 20 MEQ TABLET PO ONE (20:48)
[2019-06-14] MEDS: SODIUM CHLORIDE 0.9% 1,000 ML IV SCH (23:56)
[2019-06-15] MEDS ORDERED: ceFAZolin 1,000 MG in SYRINGE 1 EACH IV ONE (07:05)
[2019-06-15] MEDS: ENALAPRIL 10 MG TABLET PO SCH ×2 (07:19→10:16)
[2019-06-15] MEDS: METOPROLOL SUCCINATE XL 100 MG TABLET PO SCH ×3 (07:20→21:16)
[2019-06-15] MEDS: DILTIAZEM CD 120 MG CAPSULE PO SCH ×3 (07:20→21:16)
[2019-06-15] MEDS ORDERED: DILTIAZEM CD 120 MG CAPSULE PO ONE (07:30)
[2019-06-15] MEDS ORDERED: METOPROLOL SUCCINATE XL 100 MG TABLET PO ONE (07:30)
[2019-06-15] MEDS ORDERED: LACTULOSE 20 GM/30 ML UDCUP PO PRN (07:55)
[2019-06-15] MEDS ORDERED: PROMETHAZINE 25 MG/1 ML VIAL IM PRN (07:55)
[2019-06-15] MEDS ORDERED: diphenhydrAMINE CAP 25 MG CAPSULE PO PRN (07:55)
[2019-06-15] MEDS ORDERED: BISACODYL 10 MG SUPP RECTAL PRN (07:55)
[2019-06-15] MEDS ORDERED: HYDROmorphone 2 MG/1 ML VIAL IV PRN ×2 (07:58→08:11)
[2019-06-15] MEDS ORDERED: SUGAMMADEX 200 MG/2 ML VIAL IV ONE (08:19)
[2019-06-15] MEDS ORDERED: LIDOCAINE 2% 5 ML VIAL ONE (08:42)
[2019-06-15] MEDS ORDERED: SEVOFLURANE 1 UNIT/15 MINUTE INH ONE (08:42)
[2019-06-15] MEDS ORDERED: fentaNYL 100 MCG/2 ML VIAL ONE (08:42)
[2019-06-15] MEDS ORDERED: ROCURONIUM 100 MG/10 ML VIAL IV ONE (08:43)
[2019-06-15] MEDS ORDERED: ONDANSETRON 4 MG/2 ML VIAL ONE (08:43)
[2019-06-15] MEDS ORDERED: ACETAMINOPHEN 1,000 MG/100 ML VIAL IV ONE (08:43)
[2019-06-15] MEDS ORDERED: ETOMIDATE 40 MG/20 ML VIAL IV ONE (08:43)
[2019-06-15] MEDS ORDERED: PANTOPRAZOLE 40 MG TABLET PO SCH (09:00)
[2019-06-15] MEDS ORDERED: HYDROmorphone 2 MG/1 ML VIAL ONE (09:01)
[2019-06-15] MEDS ORDERED: ONDANSETRON 4 MG/2 ML VIAL IV PRN (09:01)
[2019-06-15] MEDS: HYDROmorphone 2 MG/1 ML VIAL IV PRN ×4 (09:05→09:20)
[2019-06-15] MEDS: SODIUM CHLORIDE 0.9% 1,000 ML IV SCH ×2 (09:08→21:19)
[2019-06-15] MEDS: MAGNESIUM CHLORIDE 64 MG TABLET PO SCH (11:28)
[2019-06-15] MEDS: ZINC GLUCONATE 50 MG TABLET PO SCH (11:28)
[2019-06-15] MEDS: SERTRALINE 25 MG TABLET PO SCH (11:28)
[2019-06-15] MEDS: PANTOPRAZOLE 40 MG TABLET PO SCH (11:29)
[2019-06-15] MEDS: CARBIDOPA/LEVODOPA 25-100 MG TABLET PO SCH ×3 (11:29→21:15)
[2019-06-15] MEDS: rOPINIRole 0.25 MG TABLET PO SCH ×3 (11:29→21:15)
[2019-06-15] MEDS: CHOLECALCIFEROL 1,000 UNIT TABLET PO SCH (11:29)
[2019-06-15] MEDS: ATORVASTATIN 40 MG TABLET PO SCH (11:30)
[2019-06-15 11:58] LABS: Basophils % 0.3 % (0.0-0.8); Eosinophils # 0.1 10*3/uL (0.0-0.87); Eosinophils % 1.3 % (0.00-10.9); Hematocrit 39.9 VOL% (35.7-47.0); Immature Granulocytes % 0.5 %; Immature Granulocytes Absolute 0.05 #; Lymphocytes # 1.3 10*3/uL (1.4-4.0); Lymphocytes % 12.7 % (21.3-54.2); Mean Corpuscular HGB Conc 32.6 GM/DL (32-36); Mean Corpuscular Volume 93.7 FL (87-102); Mean Platelet Volume 10.6 FL (9.6-12.0); Monocytes % 7.5 % (1.7-12.7); Neutrophils % 77.7 % (38.7-73.9); Platelet Count 183 T/CUMM (130-400); Red Blood Count 4.26 MC/CUMM (3.8-5.5); Red Cell Distribution Width 14.5 % (9.3-17.3); White Blood Count 10.5 T/CUMM (4-12)
[2019-06-15 12:18] LABS: Alanine Aminotransferase < 9 U/L (13-56); Albumin 3.1 G/DL (3.4-5.0); Alkaline Phosphatase 91 U/L (45-117); Aspartate Amino Transferase 18 U/L (0-37); Blood Urea Nitrogen 18 MG/DL (7-18); Calcium 8.4 MG/DL (8.5-10.1); Estimated Glom Filtration Rate 52 ML/MIN; Glucose 108 MG/DL (74-106); Osmolality,Calculated 281.4 MOS/KG (273-304); Total Protein 6.4 G/DL (6.4-8.3)
[2019-06-15] MEDS: ceFAZolin 1,000 MG in SYRINGE 1 EACH IV SCH (16:48)
[2019-06-15] MEDS: LATANOPROST 0.005% OPH SOLN 2.5 ML BOTTLE BOTH EYES SCH (21:16)
[2019-06-15] MEDS: APIXABAN 5 MG TABLET PO SCH (21:16)
[2019-06-16] MEDS: SODIUM CHLORIDE 0.9% 1,000 ML IV SCH ×2 (00:55→16:30)
[2019-06-16] MEDS: ceFAZolin 1,000 MG in SYRINGE 1 EACH IV SCH ×2 (01:57→10:58)
[2019-06-16 06:51] LABS: Basophils # 0.1 10*3/uL (0.0-0.2); Basophils % 0.5 % (0.0-0.8); Eosinophils # 0.2 10*3/uL (0.0-0.87); Eosinophils % 1.8 % (0.00-10.9); Hemoglobin 12.4 GM/DL (12.0-16.0); Immature Granulocytes % 0.3 %; Immature Granulocytes Absolute 0.03 #; Lymphocytes # 1.4 10*3/uL (1.4-4.0); Mean Corpuscular HGB Conc 32.6 GM/DL (32-36); Mean Corpuscular Volume 94.5 FL (87-102); Mean Platelet Volume 10.6 FL (9.6-12.0); Neutrophils % 76.4 % (38.7-73.9); Platelet Count 169 T/CUMM (130-400); Red Blood Count 4.02 MC/CUMM (3.8-5.5); Red Cell Distribution Width 14.6 % (9.3-17.3); White Blood Count 9.8 T/CUMM (4-12)
[2019-06-16 09:30] LABS: Calcium 8.6 MG/DL (8.5-10.1)
[2019-06-16 09:31] LABS: Osmolality,Calculated 279.5 MOS/KG (273-304)
[2019-06-16] MEDS: ATORVASTATIN 40 MG TABLET PO SCH (09:40)
[2019-06-16] MEDS: MAGNESIUM CHLORIDE 64 MG TABLET PO SCH (09:40)
[2019-06-16] MEDS: CARBIDOPA/LEVODOPA 25-100 MG TABLET PO SCH ×3 (09:41→21:15)
[2019-06-16] MEDS: APIXABAN 5 MG TABLET PO SCH ×2 (09:41→21:14)
[2019-06-16] MEDS: DILTIAZEM CD 120 MG CAPSULE PO SCH ×2 (09:42→21:14)
[2019-06-16] MEDS: SERTRALINE 25 MG TABLET PO SCH (09:43)
[2019-06-16] MEDS: rOPINIRole 0.25 MG TABLET PO SCH ×3 (09:43→21:14)
[2019-06-16] MEDS: CHOLECALCIFEROL 1,000 UNIT TABLET PO SCH (09:43)
[2019-06-16] MEDS: ENALAPRIL 10 MG TABLET PO SCH (09:43)
[2019-06-16] MEDS: PANTOPRAZOLE 40 MG TABLET PO SCH (09:43)
[2019-06-16] MEDS: ZINC GLUCONATE 50 MG TABLET PO SCH (09:43)
[2019-06-16] MEDS: METOPROLOL SUCCINATE XL 100 MG TABLET PO SCH ×2 (09:44→21:14)
[2019-06-16] MEDS ORDERED: ceFAZolin 1,000 MG in SYRINGE 1 EACH IV SCH (10:45)
[2019-06-16] MEDS: MAGNESIUM HYDROXIDE SUSP 30 ML UDCUP PO PRN (21:20)
[2019-06-16] MEDS: LATANOPROST 0.005% OPH SOLN 2.5 ML BOTTLE BOTH EYES SCH (23:15)
[2019-06-17] MEDS: SODIUM CHLORIDE 0.9% 1,000 ML IV SCH (03:14)
[2019-06-17] MEDS: MAGNESIUM HYDROXIDE SUSP 30 ML UDCUP PO PRN (07:06)
[2019-06-17] MEDS: METOPROLOL SUCCINATE XL 100 MG TABLET PO SCH ×2 (08:23→20:23)
[2019-06-17] MEDS: ZINC GLUCONATE 50 MG TABLET PO SCH (08:23)
[2019-06-17] MEDS: APIXABAN 5 MG TABLET PO SCH ×2 (08:23→20:23)
[2019-06-17] MEDS: rOPINIRole 0.25 MG TABLET PO SCH ×3 (08:23→20:24)
[2019-06-17] MEDS: CARBIDOPA/LEVODOPA 25-100 MG TABLET PO SCH ×3 (08:23→20:23)
[2019-06-17] MEDS: MAGNESIUM CHLORIDE 64 MG TABLET PO SCH (08:23)
[2019-06-17] MEDS: PANTOPRAZOLE 40 MG TABLET PO SCH (08:24)
[2019-06-17] MEDS: DILTIAZEM CD 120 MG CAPSULE PO SCH ×2 (08:24→20:23)
[2019-06-17] MEDS: CHOLECALCIFEROL 1,000 UNIT TABLET PO SCH (08:24)
[2019-06-17] MEDS: ATORVASTATIN 40 MG TABLET PO SCH (08:24)
[2019-06-17] MEDS: ENALAPRIL 10 MG TABLET PO SCH (08:24)
[2019-06-17] MEDS: SERTRALINE 25 MG TABLET PO SCH (08:40)
[2019-06-17] MEDS: POLYETHYLENE GLYCOL POWDER 17 GM PACK PO SCH (12:41)
[2019-06-17] MEDS: LATANOPROST 0.005% OPH SOLN 2.5 ML BOTTLE BOTH EYES SCH (20:27)
[2019-06-18] MEDS: POLYETHYLENE GLYCOL POWDER 17 GM PACK PO SCH (09:26)
[2019-06-18] MEDS: rOPINIRole 0.25 MG TABLET PO SCH ×3 (09:26→21:12)
[2019-06-18] MEDS: MAGNESIUM CHLORIDE 64 MG TABLET PO SCH (09:27)
[2019-06-18] MEDS: CHOLECALCIFEROL 1,000 UNIT TABLET PO SCH (09:27)
[2019-06-18] MEDS: DILTIAZEM CD 120 MG CAPSULE PO SCH ×2 (09:27→21:12)
[2019-06-18] MEDS: ATORVASTATIN 40 MG TABLET PO SCH (09:27)
[2019-06-18] MEDS: CARBIDOPA/LEVODOPA 25-100 MG TABLET PO SCH ×3 (09:27→21:15)
[2019-06-18] MEDS: ZINC GLUCONATE 50 MG TABLET PO SCH (09:28)
[2019-06-18] MEDS: ENALAPRIL 10 MG TABLET PO SCH (09:28)
[2019-06-18] MEDS: APIXABAN 5 MG TABLET PO SCH ×2 (09:28→21:12)
[2019-06-18] MEDS: PANTOPRAZOLE 40 MG TABLET PO SCH (09:28)
[2019-06-18] MEDS: SERTRALINE 25 MG TABLET PO SCH (09:28)
[2019-06-18] MEDS: METOPROLOL SUCCINATE XL 100 MG TABLET PO SCH ×2 (09:28→21:13)
[2019-06-18] MEDS: MAGNESIUM HYDROXIDE SUSP 30 ML UDCUP PO PRN (21:12)
[2019-06-18] MEDS: LATANOPROST 0.005% OPH SOLN 2.5 ML BOTTLE BOTH EYES SCH (21:15)
[2019-06-19 08:56] LABS: Basophils # 0.1 10*3/uL (0.0-0.2); Basophils % 0.6 % (0.0-0.8); Eosinophils # 0.3 10*3/uL (0.0-0.87); Eosinophils % 3.3 % (0.00-10.9); Hematocrit 39.8 VOL% (35.7-47.0); Hemoglobin 13.2 GM/DL (12.0-16.0); Immature Granulocytes % 0.4 %; Immature Granulocytes Absolute 0.04 #; Lymphocytes # 1.5 10*3/uL (1.4-4.0); Lymphocytes % 16.2 % (21.3-54.2); Mean Corpuscular HGB Conc 33.2 GM/DL (32-36); Mean Corpuscular Volume 91.7 FL (87-102); Monocytes % 7.6 % (1.7-12.7); Neutrophils % 71.9 % (38.7-73.9); Platelet Count 209 T/CUMM (130-400); Red Blood Count 4.34 MC/CUMM (3.8-5.5); Red Cell Distribution Width 14.6 % (9.3-17.3); White Blood Count 9.4 T/CUMM (4-12)
[2019-06-19 09:22] LABS: Calcium 8.6 MG/DL (8.5-10.1); Osmolality,Calculated 274.8 MOS/KG (273-304)
[2019-06-19] MEDS: APIXABAN 5 MG TABLET PO SCH (09:34)
[2019-06-19] MEDS: DILTIAZEM CD 120 MG CAPSULE PO SCH (09:34)
[2019-06-19] MEDS: PANTOPRAZOLE 40 MG TABLET PO SCH (09:35)
[2019-06-19] MEDS: rOPINIRole 0.25 MG TABLET PO SCH (09:35)
[2019-06-19] MEDS: POLYETHYLENE GLYCOL POWDER 17 GM PACK PO SCH (09:35)
[2019-06-19] MEDS: ATORVASTATIN 40 MG TABLET PO SCH (09:35)
[2019-06-19] MEDS: CARBIDOPA/LEVODOPA 25-100 MG TABLET PO SCH (09:35)
[2019-06-19] MEDS: METOPROLOL SUCCINATE XL 100 MG TABLET PO SCH (09:36)
[2019-06-19] MEDS: ZINC GLUCONATE 50 MG TABLET PO SCH (09:36)
[2019-06-19] MEDS: MAGNESIUM CHLORIDE 64 MG TABLET PO SCH (09:36)
[2019-06-19] MEDS: ENALAPRIL 10 MG TABLET PO SCH (09:36)
[2019-06-19] MEDS: CHOLECALCIFEROL 1,000 UNIT TABLET PO SCH (09:36)
[2019-06-19] MEDS: SERTRALINE 25 MG TABLET PO SCH (09:37)
[2019-06-19 12:23] VITALS: BP 145/67
== END 2019-06-19 14:24 | disposition swing bed (61) | DRG 481 ==
LOC: EDUNIT# → EDBD → N.ED 16:18 → N.EDINP 18:08 → N.3E 19:14
PROVIDERS: ADMIT Internal Medicine; ATTEND Internal Medicine